=== PATIENT | female | born 1940 | race Caucasian/White ===

== ENCOUNTER 2017-06-22 10:42 | Emergency (ER) | payer MEDICARE, OTHER ==
[~2017-06-22] VITALS: Ht 160 cm; Wt 73.6 kg
[~2017-06-22 10:42] MED LIST: AMLO2.5T PO; LIPI10TA PO; METO50TA PO; PERC5TAB12 PO; PROT40TA PO; REST0.05 OU; SUCR1TAB PO; SYNT25TA PO; ZOLO50TA PO; [UNRECOGNIZED DRUG - CODE] PO; [UNRECOGNIZED DRUG - OTHER] PO
[2017-06-22 10:44] VITALS: BP 171/71; PULSE 70; RESP 18; TEMP 97.5; O2SAT 96
[2017-06-22] MEDS ORDERED: CARA1TAB6 PO (11:01)
[2017-06-22] MEDS ORDERED: DETR4CAP PO (11:01)
--- NOTE | 2017-06-22 11:01 | PD ---
HPI Chief Complaint: Injury Time Seen by Provider: 10:58 Travel History International Travel<30 days: No Contact w/Intl Traveler<30days: No Traveled to known affect area: No History of Present Illness HPI 76-year-old female states a month ago when she was stepping out of her home her foot went one way and she went other and it was fine until 2 days ago she started having pain and swelling. She denies any new trauma. She denies any other concurrent complaints. Pain is worse with movement. She denies other modifying factors. Severity is moderate. PFSH Past Medical History Depression: Yes Cancer: No Cardiovascular Problems: Yes (HTN) High Cholesterol: Yes Diminished Hearing: No Endocrine: No Gastrointestinal Disorders: Yes (SPASTIC BOWEL SYNDROME) GERD: Yes Genitourinary: No Headaches: Yes Hypertension: Yes Implanted Vascular Access Dvce: No Musculoskeletal: No Neurologic: Yes Psychiatric: Yes Respiratory: No Migraines: Yes Thyroid Disease: Yes Tetanus Vaccination: > 5 Years Influenza Vaccination: Yes ?: Not Menopausal: Yes Past Surgical History Abdominal Surgery: Yes (CHOLECYSTECTOMY) Cholecystectomy: Yes Hysterectomy: Yes (70) Other Surgery: Yes Social History Alcohol Use: No Tobacco Use: No Substance Use: No Allergies-Medications (Allergen,Severity, Reaction): Coded Allergies: Sulfa (Sulfonamide Antibiotics) (Unverified Allergy, Severe, "swell and itch", 06/22/17) penicillin G (Unverified Adverse Reaction, Severe, PT DENIES, 06/22/17) Reported Meds & Prescriptions Reported Meds & Active Scripts Active Reported Prevacid (Lansoprazole) 30 Mg Capdr 30 Mg PO DAILY Restasis Opth 0.05% (Cyclosporine Opth 0.05%) 0.05% Emul 1 Drop EACH EYE BID [Domperidone] Zoloft (Sertraline HCl) 50 Mg Tab 50 Mg PO DAILY Synthroid (Levothyroxine Sodium) 25 Mcg Tab 25 Mcg PO DAILY Protonix (Pantoprazole Sodium) 40 Mg Tab 40 Mg PO BID Norvasc (Amlodipine Besylate) 5 Mg Tab 5 Mg PO DAILY Lopressor (Metoprolol Tartrate) 50 Mg Tab 50 Mg PO DAILY Lipitor (Atorvastatin Calcium) 10 Mg Tab 10 Mg PO HS Detrol LA (Tolterodine Tartrate) 4 Mg Cap 4 Mg PO DAILY Carafate (Sucralfate) 1 Gm Tab 1 Gm PO QID On empty stomach Review of Systems Except as stated in HPI: all other systems reviewed are Neg Physical Exam Narrative General: No apparent distress, well appearing ENT: mmm Neck: Neck is supple, trachea is midline Cardiovascular: Regular rate and rhythm Lungs: No increased respiratory effort noted Extremities: No edema,Pain with palpation of left anterior foot, no pain with other joints , neurovascularly intact, no lacerations over, compartments soft. Neuro: Awake, motor and sensation grossly intact, normal speech Data Data Last Documented VS Vital Signs Date Time Temp Pulse Resp B/P (MAP) Pulse Ox O2 Delivery O2 Flow Rate FiO2 06/22/17 10:54 Room Air 06/22/17 10:44 97.5 70 18 171/71 (104) 96 Orders Orders Foot, Complete ([id number]) (06/22/17 10:58) [facility] Medical Decision Making Medical Screen Exam Complete: Yes Emergency Medical Condition: Yes Medical Record Reviewed: Yes (past history confirmed) Interpretation(s) Last 24 hours Impressions Foot X-Ray 06/22/17 1058 Signed Impressions: Service Date/Time: Thursday, June 22, 2017 11:15 - CONCLUSION: 1. No fracture, subluxation or other acute bony abnormality. 2. Midfoot and medial forefoot mild to moderate osteoarthritic changes as above. 3. Small heel spur. 4. Anatomic variants type I accessory navicular and os peroneum noted. 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 Tj Nolasco MD Differential Diagnosis Fracture, strain, sprain Narrative Course We'll check x-ray and reevaluate xray no emergent, Patient denies any new complaints and states that they are feeling better. Patient happy with care, all questions answered. Patient knows that follow up is incumbent on them and to return to the emergency room immediately if new or worsening symptoms develop. Patient given strict return precautions, vitals reviewed and are normal, agrees to further workup as an outpatient. Diagnosis Primary Impression: Foot pain, left Patient Instructions: General Instructions Additional Instructions: return as needed, follow with primary this week, tylenol and motrin as needed Med/Other Pt SpecificInfo: No Change to Meds Disposition: 01 DISCHARGE HOME Condition: Stable Yudith Tang MD Jun 22, 2017 11:01
[2017-06-22] MEDS ORDERED: REST0.05 EACH EYE (11:02)
[2017-06-22] MEDS ORDERED: AMLO5 PO (11:02)
[2017-06-22] MEDS ORDERED: SYNT25TA PO (11:02)
[2017-06-22] MEDS ORDERED: LIPI10TA PO (11:02)
[2017-06-22] MEDS ORDERED: PREV30CA11 PO (11:02)
[2017-06-22] MEDS ORDERED: METO-309 PO (11:02)
[2017-06-22] MEDS ORDERED: ZOLO50TA PO (11:02)
[2017-06-22] MEDS ORDERED: PROT40TA PO (11:02)
[2017-06-22] MEDS ORDERED: DOMPERIDONE (11:02)
--- NOTE | 2017-06-22 11:32 | RADRPT ---
EXAM DATE/TIME: 06/22/2017 11:15 [facility] COMPARISON: No previous studies available for comparison. INDICATIONS : Onset of left foot pain after working in [employer] MEDICAL HISTORY : None. SURGICAL HISTORY : None. ENCOUNTER: Initial ACUITY: 3 days PAIN SCORE: 10/10 LOCATION: Left foot FINDINGS: No fracture or subluxation seen of the left foot. 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 There is also mild osteoarthritis of the first metatarsophalangeal joint and sesamoids and also the great toe interphalangeal joint. Small heel spur present. Anatomic variant os peroneum and type I accessory navicular. Also a bipartite tibial sesamoid. CONCLUSION: 1. No fracture, subluxation or other acute bony abnormality. 2. Midfoot and medial forefoot mild to moderate osteoarthritic changes as above. 3. Small heel spur. 4. Anatomic variants type I accessory navicular and os peroneum noted. The tibial sesamoid is biparti te. Tj Nolasoc MD on June 22, 2017 at 11:28 Board Certified Radiologist. This report was verified electronically.
== END 2017-06-22 11:54 | disposition home or self-care (01) ==
LOC: PHEFT 10:42
DX: M79.672 Pain in left foot (principal)
CPT/HCPCS: 73630; 99283